=== PATIENT | male | born 1965 | race African-American/Black ===

== ENCOUNTER 2018-07-31 18:57 | Emergency (ER) | payer MEDICAID ==
[~2018-07-31] VITALS: Ht 177.8 cm; Wt 81.6 kg
[2018-07-31] MEDS ORDERED: UNABLE MC (19:05)
--- NOTE | 2018-07-31 19:23 | PHYS DOC ---
Past Medical History Past Medical History: Hypertension, Other Past Surgical History: Other Additional Past Surgical Histo: "MY HIPS" Alcohol Use: Occasionally Drug Use: Phencyclidine Social History Narrative: PCP, "WHAT EVER IT TAKES" Adult General Chief Complaint Chief Complaint: DRUG ABUSE HPI HPI 52-year-old male brought in by EMS for altered mental status. Patient was apparently walking down the street and taking his clothes off. Patient admitted to EMS that he has been using PCP. In my exam patient is alert and cooperative. He denies any prescription medications he denies any surgeries he states he smokes and he states he drinks daily. Patient states he is unsure if he drank any alcohol today. When asking the patient specifically about drug use and PCP Patient denied. Patient denies any headache neck pain chest pain shortness of breath or abdominal pain. Review of Systems Review of Systems Constitutional: Denies fever or chills [] Eyes: Denies change in visual acuity, redness, or eye pain [] HENT: Denies nasal congestion or sore throat [] Respiratory: Denies cough or shortness of breath [] Cardiovascular: No additional information not addressed in HPI [] GI: Denies abdominal pain, nausea, vomiting, bloody stools or diarrhea [] : Denies dysuria or hematuria [] Musculoskeletal: Denies back pain or joint pain [] Integument: Denies rash or skin lesions [] Neurologic: Denies headache, focal weakness or sensory changes [] Endocrine: Denies polyuria or polydipsia [] All other systems were reviewed and found to be within normal limits, except as documented in this note. Current Medications Current Medications Current Medications Medications (Trade) Dose Ordered Sig/Sen Start Time Stop Time Status Last Admin Dose Admin Sodium Chloride 1,000 ml @ 1,000 mls/hr 1X ONCE 07/31/18 19:30 07/31/18 20:29 DC 07/31/18 20:21 1,000 MLS/HR Allergies Allergies Allergies Coded Allergies Type Severity Reaction Last Updated Verified No Known Drug Allergies 07/31/18 No Physical Exam Physical Exam Constitutional: Well developed, well nourished, no acute distress, non-toxic appearance. [] HENT: Normocephalic, atraumatic, bilateral external ears normal, oropharynx moist, no oral exudates, nose normal. [] Eyes: PERRLA, EOMI, conjunctiva normal, no discharge. [] Neck: Normal range of motion, no tenderness, supple, no stridor. [] Cardiovascular:Heart rate regular rhythm, no murmur [] Lungs & Thorax: Bilateral breath sounds clear to auscultation [] Abdomen: Bowel sounds normal, soft, no tenderness, no masses, no pulsatile masses. [] Skin: Warm, dry, no erythema, no rash. [] Back: No tenderness, no CVA tenderness. [] Extremities: No tenderness, no cyanosis, no clubbing, ROM intact, no edema. [] Neurologic: Alert and oriented X 3, normal motor function, normal sensory function, no focal deficits noted. [] Psychologic: Affect normal, judgement normal, mood normal. [] Current Patient Data Vital Signs Vital Signs Date Time Temp Pulse Resp B/P (MAP) Pulse Ox O2 Delivery O2 Flow Rate FiO2 07/31/18 23:45 92 16 125/72 (89) 97 Room Air 07/31/18 18:58 98.7 98.7 Lab Values Laboratory Tests Test 07/31/18 19:15 07/31/18 20:26 White Blood Count 5.5 x10^3/uL (4.0-11.0) Red Blood Count 4.80 x10^6/uL (4.30-5.70) Hemoglobin 14.8 g/dL (13.0-17.5) Hematocrit 44.3 % (39.0-53.0) Mean Corpuscular Volume 92 fL (79-100) Mean Corpuscular Hemoglobin 31 pg (25-35) Mean Corpuscular Hemoglobin Concent 34 g/dL (31-37) Red Cell Distribution Width 15.0 % (11.5-14.5) H Platelet Count 171 x10^3/uL (140-400) Neutrophils (%) (Auto) 56 % (31-73) Lymphocytes (%) (Auto) 32 % (24-48) Monocytes (%) (Auto) 9 % (0-9) Eosinophils (%) (Auto) 2 % (0-3) Basophils (%) (Auto) 0 % (0-3) Neutrophils # (Auto) 3.1 x10^3uL (1.8-7.7) Lymphocytes # (Auto) 1.8 x10^3/uL (1.0-4.8) Monocytes # (Auto) 0.5 x10^3/uL (0.0-1.1) Eosinophils # (Auto) 0.1 x10^3/uL (0.0-0.7) Basophils # (Auto) 0.0 x10^3/uL (0.0-0.2) Sodium Level 147 mmol/L (136-145) H Potassium Level 4.2 mmol/L (3.5-5.1) Chloride Level 108 mmol/L (98-107) H Carbon Dioxide Level 30 mmol/L (21-32) Anion Gap 9 (6-14) Blood Urea Nitrogen 18 mg/dL (8-26) Creatinine 1.4 mg/dL (0.7-1.3) H Estimated GFR (Cockcroft-Gault) 53.2 BUN/Creatinine Ratio 13 (6-20) Glucose Level 101 mg/dL (70-99) H Calcium Level 8.9 mg/dL (8.5-10.1) Total Bilirubin 0.6 mg/dL (0.2-1.0) Aspartate Amino Transferase (AST) 28 U/L (15-37) Alanine Aminotransferase (ALT) 33 U/L (16-63) Alkaline Phosphatase 58 U/L (46-116) Total Protein 7.8 g/dL (6.4-8.2) Albumin 3.9 g/dL (3.4-5.0) Albumin/Globulin Ratio 1.0 (1.0-1.7) Ethyl Alcohol Level < 10 mg/dL (0-10) Urine Opiates Screen Neg (NEG) Urine Methadone Screen Neg (NEG) Urine Barbiturates Neg (NEG) Urine Phencyclidine Screen Pos (NEG) Urine Amphetamine/Methamphetamine Neg (NEG) Urine Benzodiazepines Screen Neg (NEG) Urine Cocaine Screen Neg (NEG) Urine Cannabinoids Screen Neg (NEG) Urine Ethyl Alcohol Neg (NEG) Laboratory Tests 07/31/18 19:15 Laboratory Tests 07/31/18 19:15 EKG EKG [] Radiology/Procedures Radiology/Procedures [] Course & Med Decision Making Course & Med Decision Making Pertinent Labs and Imaging studies reviewed. (See chart for details) []Agent was evaluated for chief complaint. Workup consisted of laboratory analysis. Patient's drug screen tested positive for PCP. Patient was observed in the emergency department. He ambulated with a normal steady gait. Patient was fed. Patient discharged. Dragon Disclaimer Dragon Disclaimer This electronic medical record was generated, in whole or in part, using a voice recognition dictation system. Departure Departure Impression: Primary Impression: PCP (phencyclidine) abuse Additional Impression: Positive urine drug screen Disposition: HOME, SELF-CARE Condition: STABLE Patient Instructions: Alcohol and Drug Addiction, Finding Treatment Problem Qualifiers BEN YEE DO Jul 31, 2018 19:22
[2018-07-31 19:28] LABS: BASO % 0 % (0-3); EOS # 0.1 x10^3/uL (0.0-0.7); EOS % 2 % (0-3); HEMATOCRIT 44.3 % (39.0-53.0); HEMOGLOBIN 14.8 g/dL (13.0-17.5); LYMPH # 1.8 x10^3/uL (1.0-4.8); LYMPH % 32 % (24-48); MEAN CORPUSCULAR HEMOGLOBIN 31 pg (25-35); MEAN CORPUSCULAR HGB CONC 34 g/dL (31-37); MEAN CORPUSCULAR VOLUME 92 fL (79-100); MONO # 0.5 x10^3/uL (0.0-1.1); MONO % 9 % (0-9); NEUT # 3.1 x10^3uL (1.8-7.7); NEUT % 56 % (31-73); PLATELET COUNT 171 x10^3/uL (140-400); WHITE BLOOD COUNT 5.5 x10^3/uL (4.0-11.0)
[2018-07-31] MEDS ORDERED: IV NORMAL SALINE 1000ML BAG 1,000 ML IV ONE (19:30)
[2018-07-31 19:34] LABS: CALCIUM 8.9 mg/dL (8.5-10.1); CREATININE 1.4 mg/dL (0.7-1.3); GFR 53.2; POTASSIUM 4.2 mmol/L (3.5-5.1)
[2018-07-31 19:41] LABS: ALBUMIN 3.9 g/dL (3.4-5.0); TOTAL BILIRUBIN 0.6 mg/dL (0.2-1.0); TOTAL PROTEIN 7.8 g/dL (6.4-8.2)
[2018-07-31 20:38] LABS: AMPHETAMINE/METHAMPHETAMINE NEG (NEG); BARBITURATES NEG (NEG); BENZODIAZEPINES NEG (NEG); CANNABINOIDS NEG (NEG); COCAINE NEG (NEG); METHADONE NEG (NEG); OPIATES NEG (NEG); PHENCYCLIDINE POS (NEG)
[2018-08-01 01:45] VITALS: BP 151/78
== END 2018-08-01 01:45 | disposition home or self-care (01) ==
LOC: ER 18:57
DX: F16.10 Hallucinogen abuse, uncomplicated (principal); R41.82 Altered mental status, unspecified; I10 Essential (primary) hypertension
CPT/HCPCS: 36415; 80053; 80307; 85025; 96360; 99283; G0480; J7030

== ENCOUNTER 2021-03-26 11:08 | Emergency (ER) | payer MEDICAID, MEDICARE ==
[~2021-03-26] VITALS: Ht 170.2 cm; Wt 72.9 kg
[~2021-03-26 11:08] MED LIST: UNABLE MC
[2021-03-26 12:16] VITALS: BP 121/89
[2021-03-26] MEDS ORDERED: CETIRIZINE HCL 10 MG TABLET. PO STA (12:17)
[2021-03-26] MEDS ORDERED: MELO7.5T29 PO (12:24)
[2021-03-26] MEDS ORDERED: CETI10TA74 PO (12:24)
--- NOTE | 2021-03-26 12:24 | PHYS DOC ---
Past Medical History Past Medical History: No Pertinent History, Hypertension, Other Past Surgical History: Other Additional Past Surgical Histo: "MY HIPS" Smoking Status: Current Every Day Smoker Alcohol Use: Occasionally Drug Use: None, Phencyclidine General Adult EDM: Chief Complaint: MULTIPLE COMPLAINTS HPI: HPI: 55-year-old male with a previous history of left hip surgery, pelvis surgery, chronic pain related to the 2 surgeries presents to the emergency room complaining of chronic pain for 10 years in this area. He has been using timothy oxicam at home with moderate relief. He does not have a primary care doctor at this time. He also complains of bilateral eye redness along with clear discharge that he states is likely related to allergies. He does not take any medicines for his eyes. He denies any change in vision. The patient denies nausea, vomiting, fever, chills, chest pain, shortness of breath, abdominal pain, urinary symptoms, cough, recent trauma, injury, or any other complaints. Review of Systems: Review of Systems: Constitutional: Negative except what was mentioned in HPI. Eyes: Negative except what was mentioned in HPI. HENT: Negative except what was mentioned in HPI. Respiratory: Negative except what was mentioned in HPI. Cardiovascular: Negative except what was mentioned in HPI. GI: Negative except what was mentioned in HPI. : Negative except what was mentioned in HPI. Musculoskeletal: Negative except what was mentioned in HPI. Integument: Negative except what was mentioned in HPI. Neurologic: Negative except what was mentioned in HPI. Heart Score: C/O Chest Pain: No Family History: Family History: Noncontributory Allergies: Allergies: Allergies Coded Allergies Type Severity Reaction Last Updated Verified No Known Drug Allergies 07/31/18 No Physical Exam: PE: Constitutional: No acute distress, non-toxic appearance. HENT: Atraumatic, bilateral external ears normal, nose normal. Eyes: PERRLA, EOMI, conjunctiva mildly injected, no discharge. Eyes appear equal bilaterally. Neck: Normal range of motion, supple, no stridor. Cardiovascular: Heart rate regular rhythm. 2+ radial pulses Lungs & Thorax: No respiratory distress, symmetrical expansion. Back: No CT or L spinal tenderness, no paravertebral tenderness bilaterally, no overlying skin changes, no hip tenderness bilaterally. Skin: Warm, dry. Extremities: No tenderness, no cyanosis, ROM intact, no edema. Neurologic: Alert and oriented X 3, normal motor function, normal sensory function, no focal deficits noted. Non ataxic gait. GCS 15. Psychologic: Affect normal, judgment normal, mood normal. Current Patient Data: Vital Signs: Vital Signs Date Time Temp Pulse Resp B/P (MAP) Pulse Ox O2 Delivery O2 Flow Rate FiO2 03/26/21 12:16 97.5 75 16 121/89 (100) 99 Room Air 97.5 Course & Med Decision Making: Course & Med Decision Making Patient's exam is consistent with allergic conjunctivitis. He has chronic pain from his surgeries as above. No injury was reported today, patient appears very well on exam. He was given a shot of Toradol, advised to continue meloxicam and follow-up with a primary care physician. Resources were provided for patient to follow-up with a primary care physician. He will be started on Zyrtec for his allergy symptoms Departure Departure Impression: Primary Impression: Allergic conjunctivitis of both eyes Additional Impression: Chronic pain following surgery or procedure Disposition: HOME / SELF CARE / HOMELESS Condition: GOOD Referrals: NO PCP (PCP) Patient Instructions: Allergic Conjunctivitis, [id number] Additional Instructions: You were seen in the emergency department and your health condition was deemed not to require admission to the hospital. It is important to realize that we ca n only evaluate you during the time that you are in her department. Occasionally health conditions can worsen upon leaving the emergency department. If this were to happen, please return to and allow us the opportunity to reevaluate you. It is a pleasure to take care of your health needs. Return to the ER if your symptoms worsen, do not improve, or if you develop additional sym ptoms that are concerning to you Scripts Meloxicam (MELOXICAM) 7.5 Mg Tablet 1 TAB PO DAILY PRN for PAIN for 30 Days, #30 TAB 0 Refills Prov: XOCHILT RAZO DO 03/26/21 Cetirizine Hcl (ZYRTEC) 10 Mg Tablet 1 TAB PO DAILY PRN for ALLERGIES, #30 TAB 5 Refills Prov: XOCHILT RAZO DO 03/26/21 XOCHILT RAZO DO Mar 26, 2021 12:24
[2021-03-26] MEDS ORDERED: KETOROLAC 15 MG/ML VIAL. IM ONE (12:30)
== END 2021-03-26 12:41 | disposition home or self-care (01) ==
LOC: ER 11:08
DX: G89.28 Other chronic postprocedural pain (principal); H57.13 Ocular pain, bilateral; H10.13 Acute atopic conjunctivitis, bilateral; I10 Essential (primary) hypertension; F17.200 Nicotine dependence, unspecified, uncomplicated
CPT/HCPCS: 96372; 99283; J1885

== ENCOUNTER 2021-04-28 15:04 | Emergency (ER) | payer MEDICARE ==
[~2021-04-28 15:04] MED LIST changes: +CETI10TA74 PO; +MELO7.5T29 PO
== END 2021-04-28 15:33 | disposition left against medical advice (07) ==
LOC: ER 15:04
DX: M79.605 Pain in left leg (principal); Z53.21 Procedure and treatment not carried out due to patient leaving prior to being seen by health care provider